=== PATIENT | female | born 1955 | race Two or more races ===

== ENCOUNTER 2018-04-07 02:13 | Emergency (ER) | payer MEDICAID ==
[~2018-04-07] VITALS: Ht 154.9 cm; Wt 63.5 kg
[2018-04-07 03:57] VITALS: BP 116/52
== END 2018-04-07 04:54 | disposition home or self-care (01) ==
LOC: ER 02:13
DX: S90.31XA Contusion of right foot, initial encounter (principal); W01.0XXA Fall on same level from slipping, tripping and stumbling without subsequent striking against object, initial encounter; Y93.89 Activity, other specified; Y99.8 Other external cause status; Y92.89 Other specified places as the place of occurrence of the external cause
CPT/HCPCS: 73630; 99284; L3260

== ENCOUNTER 2019-10-27 05:46 | Emergency (ER) | payer MEDICAID ==
[~2019-10-27] VITALS: Ht 154.9 cm; Wt 63.5 kg
[2019-10-27 08:50] VITALS: BP 122/80
== END 2019-10-27 09:03 | disposition home or self-care (01) ==
LOC: ER 05:46
DX: J06.9 Acute upper respiratory infection, unspecified (principal)
CPT/HCPCS: 71046